=== PATIENT | male | born 1985 | race African-American/Black ===

== ENCOUNTER 2025-04-10 19:04 | Emergency (ER) | payer OTHER ==
[~2025-04-10] VITALS: Ht 195.6 cm; Wt 99.8 kg
[2025-04-10 19:07] VITALS: BP 134/94; PULSE 86; RESP 18; TEMP 98; O2SAT 98
[2025-04-10 19:43] VITALS: BP 130/90; PULSE 84; RESP 18; TEMP 98; O2SAT 98
[2025-04-10] MEDS ORDERED: TORADOL ONE (19:53)
[2025-04-10] MEDS: TORADOL IM STA (19:58)
[2025-04-10] MEDS ORDERED: KETO10TA PO (20:00)
[2025-04-10] MEDS ORDERED: CEPH500C PO (20:00)
[2025-04-10 20:03] VITALS: BP 132/96; PULSE 80; RESP 18; TEMP 98; O2SAT 98
== END 2025-04-10 20:05 | disposition home or self-care (01) ==
LOC: ER 19:04
DX: L03.113 Cellulitis of right upper limb (principal); L84 Corns and callosities; F12.90 Cannabis use, unspecified, uncomplicated; Z88.6 Allergy status to analgesic agent
CPT/HCPCS: 99283; 96372; 73130; J1885

== ENCOUNTER 2025-04-12 07:47 | Emergency (ER) | payer OTHER ==
[~2025-04-12] VITALS: Ht 195.6 cm; Wt 100.2 kg
[~2025-04-12 07:47] MED LIST: CEPH500C PO; KETO10TA PO
[2025-04-12 07:51] VITALS: BP 170/106; PULSE 79; RESP 20; TEMP 97.7; O2SAT 99
[2025-04-12 08:10] LABS: BASOPHIL # 0.0 10^3/uL (0.0-0.1); BASOPHIL % 0.2 % (0.2-1.2); EOSINOPHIL # 0.3 10^3/uL (0.0-0.2); EOSINOPHIL % 2.3 % (0.0-5.0); HEMATOCRIT(ML) 43.5 % (37.0-53.0); IG % 0.20 % (0.00-0.50); LYMPHOCYTES # 2.29 10^3/uL1 (1.0-4.8); LYMPHOCYTES % 18.3 % (24.0-44.0); MEAN CORP HGB 29.2 pg (26-34); MEAN CORP HGB CONCENTRATION 33.3 g/dL (33-36.5); MEAN CORP VOLUME 87.7 fL (78-100); MONOCYTES # 0.8 10^3/uL (0.3-0.8); MONOCYTES % 6.1 % (5.0-12.0); NEUTROPHIL # 9.1 10^3/uL (1.8-7.7); NEUTROPHILS % 72.9 % (41.0-85.0); RED BLOOD CELL 4.96 10^6/uL (4.50-5.90); RED CELL DISTRIBUTION WIDTH 12.3 % (11.5-14.5); WHITE BLOOD CELL 12.5 10^3/uL (4.5-11.0)
[2025-04-12 08:21] LABS: INR 1.0; PROTHROMBIN PROTIME 10.3 SEC (9.3-11.6)
[2025-04-12 08:26] LABS: ALANINE AMINOTRANSFERASE(ML) 27.0 U/L (12-78); ALBUMIN(ML) 3.7 g/dL (3.4-5.0); CREATININE SERUM 1.14 mg/dL (0.59-1.40); EST GFR, NON-AA 71.5 (>/=60)
[2025-04-12] MEDS ORDERED: OFIRMEV 100 ML IV ONE (08:42)
[2025-04-12 08:49] VITALS: BP 154/105; PULSE 67; RESP 20; TEMP 97.7; O2SAT 98
[2025-04-12] MEDS: OFIRMEV 100 ML IV ONE (08:49)
[2025-04-12] MEDS ORDERED: TORADOL ONE (09:36)
[2025-04-12] MEDS: TORADOL IV PRN (09:40)
[2025-04-12 09:54] VITALS: BP 146/107; PULSE 58; RESP 21; TEMP 98; O2SAT 99
[2025-04-12 11:00] VITALS: BP 164/96; PULSE 55; RESP 20; TEMP 97.8; O2SAT 97
[2025-04-12] MEDS ORDERED: [UNRECOGNIZED DRUG - CODE] PO (11:25)
[2025-04-12] MEDS ORDERED: IBUP-1131 PO (11:25)
[2025-04-12] MEDS ORDERED: TRAM50TA PO (11:25)
[2025-04-12 11:29] VITALS: BP 154/105; PULSE 69; RESP 20; O2SAT 100
== END 2025-04-12 11:33 | disposition home or self-care (01) ==
LOC: ER 07:47
DX: M79.641 Pain in right hand (principal); R22.31 Localized swelling, mass and lump, right upper limb; F12.90 Cannabis use, unspecified, uncomplicated; Z79.899 Other long term (current) drug therapy; Z88.6 Allergy status to analgesic agent
CPT/HCPCS: 99285; 73201; 96365; 96375; 80053; 85025; 36415; 85610; 85651; 86140; J1885; J0131; Q9965